=== PATIENT | female | born 1980 | race Caucasian/White ===

== ENCOUNTER 2020-02-19 09:59 | Emergency (ER) | payer OTHER, SELFPAY ==
[2020-02-19 10:29] VITALS: BP 181/95; PULSE 80; RESP 16; TEMP 36.6; O2SAT 98; BMI 29.2
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
== END 2020-02-19 11:53 | disposition home or self-care (01) ==
PROVIDERS: Emergency Provider Emergency Medicine; PCP Physician Assistant Medical
DX: S00.31XA Abrasion of nose, initial encounter (principal); J34.89 Other specified disorders of nose and nasal sinuses; Y04.8XXA Assault by other bodily force, initial encounter; Y93.9 Activity, unspecified; Y92.9 Unspecified place or not applicable; Y99.9 Unspecified external cause status; Z23 Encounter for immunization
CPT/HCPCS: 90471; 90715; 99283; 99284